=== PATIENT | male | born 1965 | race Caucasian/White ===

== ENCOUNTER 2019-03-16 12:13 | Emergency (ER) | payer BC ==
[2019-03-16] MEDS ORDERED: Sodium Chloride 0.9% 10 ML Syringe FLUSH PRN (12:24)
[2019-03-16] MEDS ORDERED: cloNIDine 0.1 MG Tab PO ONE (12:24)
[2019-03-16] MEDS ORDERED: Ketorolac 30 MG/ML SDV IVPUSH ONE (12:24)
--- NOTE | 2019-03-16 12:26 | EDM.PDOC ---
ED HPI GENERAL MEDICAL PROBLEM - General Chief Complaint: Headache Stated Complaint: CHEST PAIN/ HIGH BP Time Seen by Provider: 03/16/19 12:17 Source of Information: Reports: Patient History Limitations: Reports: No Limitations - History of Present Illness INITIAL COMMENTS - FREE TEXT/NARRATIVE: Patient's unfortunate 53-year-old male who presents emergency Department today with complaint of headache. Patient reports that he has had headache last 3 days which she reports is the worst headache of my life". Patient reports she has a dull aching headache that is retro-orbital bilaterally and then spreads to his entire head he has taken ibuprofen at home with no improvement in symptoms. Patient reports he has had intermittent episodes of confusion [place] at work he was told were to drive to and then he drove to the wrong location once he got there he realized he was at the wrong location and then went to the correct location. He reports this is happened several times over the last 3 days. Patient again concerned today went to urgent care where he was found to be hypertensive with a blood pressure of 220/ 120 and so he sent to the emergency department for evaluation. No nausea no vomiting no chest pain no chest shortness of breath, patient is alert and oriented 3 at this time with no hemiplegia Left Headache Pain Score (Numeric/FACES): 10 Chest Pain Score (Numeric/FACES): 3 Left Arm Pain Score (Numeric/FACES): 3 - Related Data Allergies Allergy/AdvReac Type Severity Reaction Status Date / Time No Known Allergies Allergy Verified 09/16/18 09:44 Home Meds: Home Meds Lisinopril [Zestril] 10 mg PO DAILY 03/16/19 [History] metFORMIN [Glucophage XR] 500 mg PO BID 03/16/19 [History] Past Medical History HEENT History: Reports: Impaired Vision Other HEENT History: wears glasses Cardiovascular History: Reports: Hypertension Musculoskeletal History: Reports: Osteoarthritis - Past Surgical History GI Surgical History: Reports: Appendectomy Other Neurological Surgeries/Procedures: compession fracture of L7 Musculoskeletal Surgical History: Reports: Arthroscopic Knee, Shoulder Surgery Social & Family History - Caffeine Use Caffeine Use: Reports: Coffee ED ROS GENERAL - Review of Systems Review Of Systems: See Below Constitutional: Denies: Fever, Chills GI/Abdominal: Denies: Nausea, Vomiting Neurological: Reports: Headache - Physical Exam Exam: See Below Exam Limited By: No Limitations General Appearance: Alert, WD/WN, Mild Distress Eye Exam: Bilateral Eye: EOMI, PERRL Ears: Normal External Exam, Normal Canal, Hearing Grossly Normal, Normal TMs Throat/Mouth: Normal Inspection, Normal Lips, Normal Teeth, Normal Gums, Normal Oropharynx, Normal Voice, No Airway Compromise Head Exam: Atraumatic, Normocephalic Neck: Normal Inspection, Supple, Non-Tender, Full Range of Motion Respiratory/Chest: No Respiratory Distress, Lungs Clear, Normal Breath Sounds, No Accessory Muscle Use, Chest Non-Tender Cardiovascular: Normal Peripheral Pulses, Regular Rate, Rhythm, No Edema, No Gallop, No JVD, No Murmur, No Rub GI/Abdominal: Normal Bowel Sounds, Soft, Non-Tender, No Organomegaly, No Distention, No Abnormal Bruit, No Mass Neuro Exam (Abbreviated): Alert, Oriented, CN II-XII Intact, Normal Cognition, Normal Gait, Normal Reflexes, No Motor/Sensory Deficits Back Exam: Normal Inspection, Full Range of Motion, NT Extremities: Normal Inspection, Normal Range of Motion, Non-Tender, No Pedal Edema, Normal Capillary Refill Skin Exam: Warm, Dry EKG INTERPRETATION EKG Date: 03/16/19 Time: 12:25 Rhythm: NSR Colbert: Normal P-Wave: Present QRS: Normal ST-T: Other (NSST changes) QT: Normal Course - Vital Signs Last Recorded V/S: Last Vital Signs Temp 97.3 F 03/16/19 12:24 Pulse 77 03/16/19 12:24 Resp 16 03/16/19 12:24 BP 174/111 H 03/16/19 13:20 Pulse Ox 99 03/16/19 12:24 - Orders/Labs/Meds Orders: Active Orders 24 hr Category Date Time Status EKG Documentation Completion [RC] ASDIRECTED Care 03/16/19 12:24 Active UA RFX JOHANNE AND CULT IF INDIC [URIN] Stat Lab 03/16/19 12:24 Ordered Sodium Chloride 0.9% [Saline Flush] Med 03/16/19 12:24 Active 10 ml FLUSH ASDIRECTED PRN Saline Lock Insert [OM.PC] Stat Oth 03/16/19 12:24 Ordered EKG 12 Lead [EK] Stat Ther 03/16/19 12:24 Ordered Medication Orders Sodium Chloride (Saline Flush) 10 ml FLUSH ASDIRECTED PRN PRN Reason: Keep Vein Open Last Admin: 03/16/19 13:22 Dose: 10 ml Labs: Laboratory Tests 03/16/19 03/16/19 Range/Units 13:00 13:00 WBC 7.67 (4.23-9.07) K/mm3 RBC 5.25 (4.63-6.08) M/mm3 Hgb 14.9 (13.7-17.5) gm/dl Hct 43.9 (40.1-51.0) % MCV 83.6 (79.0-92.2) fl MCH 28.4 (25.7-32.2) pg MCHC 33.9 (32.2-35.5) g/dl RDW Std Deviation 40.1 (35.1-43.9) fL Plt Count 217 (163-337) K/mm3 MPV 9.1 L (9.4-12.3) fl Neut % (Auto) 54.6 (34.0-67.9) % Lymph % (Auto) 34.0 (21.8-53.1) % [place] % (Auto) 8.7 (5.3-12.2) % Eos % (Auto) 2.0 (0.8-7.0) Baso % (Auto) 0.4 (0.1-1.2) % Neut # (Auto) 4.19 (1.78-5.38) K/mm3 Lymph # (Auto) 2.61 (1.32-3.57) K/mm3 [place] # (Auto) 0.67 (0.30-0.82) K/mm3 Eos # (Auto) 0.15 (0.04-0.54) K/mm3 Baso # (Auto) 0.03 (0.01-0.08) K/mm3 Sodium 137 (136-145) mEq/L Potassium 3.5 (3.5-5.1) mEq/L Chloride 103 (98-107) mEq/L Carbon Dioxide 22 (21-32) mEq/L Anion Gap 15.5 H (5-15) BUN 16 (7-18) mg/dL Creatinine 0.9 (0.7-1.3) mg/dL Est Cr Clr Drug Dosing 115.20 mL/min Estimated GFR (MDRD) > 60 (>60) mL/min BUN/Creatinine Ratio 17.8 (14-18) Glucose 112 H (74-106) mg/dL Calcium 8.3 L (8.5-10.1) mg/dL Total Bilirubin 0.7 (0.2-1.0) mg/dL AST 20 (15-37) U/L ALT 32 (16-63) U/L Alkaline Phosphatase 96 (46-116) U/L Troponin I < 0.017 (0.00-0.056) ng/mL Total Protein 7.4 (6.4-8.2) g/dl Albumin 3.9 (3.4-5.0) g/dl Globulin 3.5 gm/dL Albumin/Globulin Ratio 1.1 (1-2) Meds: Medications Generic Name Dose Route Start Last Admin Trade Name Freq PRN Reason Stop Dose Admin Sodium Chloride 10 ml 03/16/19 12:24 03/16/19 13:22 Saline Flush FLUSH 10 ml ASDIRECTED PRN Administration Keep Vein Open Discontinued Medications Generic Name Dose Route Start Last Admin Trade Name Freq PRN Reason Stop Dose Admin Clonidine HCl 0.2 mg 03/16/19 12:24 03/16/19 13:20 Catapres PO 03/16/19 12:25 0.2 mg ONETIME ONE Administration Ketorolac Tromethamine 30 mg 03/16/19 12:24 03/16/19 13:22 Toradol IVPUSH 03/16/19 12:25 30 mg ONETIME ONE Administration - Re-Assessments/Exams Free Text/Narrative Re-Assessment/Exam: 03/16/19 14:28 Chest x-ray "impression: #1 bony findings believed to be nonacute. #2 nothing acute is seen on two-view chest x-ray." CT head "impression: #1 nothing acute is appreciated on noncontrast head CT exam." Free Text/Narrative Re-Assessment/Exam: 03/16/19 14:54 Patient reports headache is improved but not resolved blood pressure is 146/99 stroke patient home and have patient follow-up with PCP Departure - Departure Time of Disposition: 14:55 Disposition: Home, Self-Care 01 Clinical Impression: Cephalgia Qualifiers: Headache type: unspecified Headache chronicity pattern: acute headache Intractability: not intractable Qualified Code(s): R51 - Headache Hypertension Qualifiers: Hypertension type: essential hypertension Qualified Code(s): I10 - Essential ( primary) hypertension - Discharge Information Referrals: PCP,Unknown [Primary Care Provider] - Forms: ED Department Discharge Additional Instructions: Home, rest, return as needed for worsening condition Sepsis Event Note - Focused Exam Vital Signs: Vital Signs Temp Pulse Resp BP BP Pulse Ox 03/16/19 13:20 174/111 H 03/16/19 12:24 97.3 F 77 16 202/120 H 99 Date Exam was Performed: 03/16/19 Time Exam was Performed: 14:54 - My Orders Last 24 Hours: My Active Orders 03/16/19 12:24 EKG Documentation Completion [RC] ASDIRECTED UA RFX JOHANNE AND CULT IF INDIC [URIN] Stat Sodium Chloride 0.9% [Saline Flush] 10 ml FLUSH ASDIRECTED PRN Saline Lock Insert [OM.PC] Stat EKG 12 Lead [EK] Stat - Assessment/Plan Last 24 Hours: My Active Orders 03/16/19 12:24 EKG Documentation Completion [RC] ASDIRECTED UA RFX JOHANNE AND CULT IF INDIC [URIN] Stat Sodium Chloride 0.9% [Saline Flush] 10 ml FLUSH ASDIRECTED PRN Saline Lock Insert [OM.PC] Stat EKG 12 Lead [EK] Stat
--- NOTE | 2019-03-16 13:23 | CT ---
Head CT Technique: Multiple axial sections through the brain were obtained. Intravenous contrast was not utilized. Comparison: No prior intracranial imaging is available. Findings: Ventricles along with basal cisterns and sulci over the convexities are within normal limits for the patient's age. No abnormal parenchymal densities are seen. No evidence of intracranial hemorrhage. No midline shift or mass effect is seen. Bone window settings were reviewed which shows no acute calvarial abnormality. Visualized mastoid and paranasal sinuses show nothing acute. Impression: 1. Nothing acute is appreciated on noncontrast head CT exam. Diagnostic code #1 This report was dictated in [place] Standard Time
--- NOTE | 2019-03-16 13:53 | CR ---
Chest: Two views of the chest were obtained. Comparison: No prior chest imaging. Heart size is normal. Mild tortuosity of the thoracic aorta is seen. Several old healed left-sided rib fractures are noted. Minimal degenerative change is scattered throughout the spine. Minimal scoliosis is also noted within the spine. Impression: 1. Bony findings believed to be nonacute. 2. Nothing acute is seen on two-view chest x-ray. Diagnostic code #2 This report was dictated in [place] Standard Time
== END 2019-03-16 15:05 | disposition home or self-care (01) ==
LOC: JD.ED 12:13
DX: I10 Essential (primary) hypertension (principal); Z90.49 Acquired absence of other specified parts of digestive tract; Z79.84 Long term (current) use of oral hypoglycemic drugs; Z79.899 Other long term (current) drug therapy
CPT/HCPCS: 36415; 70450; 71046; 80053; 84484; 85025; 93005; 96374; 99285; A9270; J1885; 93010; 99284